=== PATIENT | male | born 1970 | race Caucasian/White ===

== ENCOUNTER 2016-10-16 08:43 | Day surgery (SDC) | payer OTHER ==
[~2016-10-16] VITALS: Ht 185.4 cm; Wt 106.0 kg
[~2016-10-16 08:43] MED LIST: 0.9% Sodium Chloride 1,000 ML IV SCH; OMEP20TA86 PO; Sodium Chloride LOK Flush 10 mL Syringe IV PRN; fentaNYL-PF 50 mCg/mL 2 mL Inj IVPUSH PRN
[2016-10-16 08:58] VITALS: BP 131/85; PULSE 66; RESP 16; O2SAT 96
[2016-10-16 10:12] VITALS: BP 129/77; PULSE 67; RESP 16; O2SAT 95
[2016-10-16 10:22] VITALS: BP 105/69; PULSE 77; RESP 16; O2SAT 93
--- NOTE | 2016-10-16 12:03 | ENDO ---
[address] [address] ENDOSCOPY PROCEDURE PATIENT: RAYSHAWN LEACH : 1970 MR#: [id number] ADMIT: 10/16/2016 JOB ID: [id number] DATE OF SERVICE: 10/16/2016 TYPE OF OPERATION: Esophagogastroduodenoscopy with biopsy and esophageal dilatation. PREOPERATIVE DIAGNOSIS(ES): Dysphagia. POSTOPERATIVE DIAGNOSIS(ES): Widely open, patent Schatzki ring in the distal esophagus, status post biopsy and esophageal dilatation performed from 18 to 20 mm in a serial fashion. ANESTHESIA: Fentanyl 125 mcg, Versed 6 mg IV administered. DESCRIPTION OF PROCEDURE: After risks and benefits explained to the patient, informed consent was obtained. After anesthesia administered, an upper endoscope was then inserted in the mouth, intubating into esophagus, stomach, second portion of duodenum. Mucosa carefully examined. After procedure was done, the scope withdrawn and procedure terminated. FINDINGS: Upon inspection of the esophagus, the esophagus was normal without masses, ulcers, or lesions, except that there was a widely open, patent Schatzki ring seen at 40 cm from incisors. Z-line located at 40 cm from incisors. Upon entering the stomach, the stomach was normal, without masses, ulcers, or lesions. Retroflexion normal. Duodenal bulb, first and second portions were normal. Biopsies taken at mid and distal esophagus. Afterwards, a CRE TTS balloon dilatation was performed in serial fashion from 18 to 20 mm in diameter with good mucosal tear. IMPRESSIONS: Widely open, patent Schatzki ring, status post biopsy and TTS CRE balloon dilatation from 18 to 20 mm in diameter with good mucosal tear. RECOMMENDATIONS: 1. Increase omeprazole to 40 mg by mouth twice a day. 2. GERD diet. 3. Await biopsy results.
--- NOTE | 2016-10-19 13:53 | PATH ---
SURGICAL PATHOLOGY Attending Physician:Jerald Whiting MD CASE STATUS: Signed Out PATIENT NAME: RAYSHAWN LEACH PID: [id number] : 1970 DATE COLLECTED:10/16/2016 18:25 SPECIMEN: 1: Esophagus, Biopsy 2: Esophagus, Biopsy CLINICAL HISTORY: 1).MID ESOPHAGUS BXS 2).DISTAL ESOPHAGUS BXS FINAL DIAGNOSIS: 1.MID ESOPHAGUS BIOPSY: FRAGMENTS OF SQUAMOUS EPITHELIUM, NEGATIVE FOR INTRAEPITHELIAL EOSINOPHILS. Negative for dysplasia and malignancy. 2.DISTAL ESOPHAGUS BIOPSIES: FRAGMENTS OF SQUAMOUS MUCOSA AND GASTRIC CARDIA-TYPE MUCOSA WITH REACTIVE EPITHELIAL CHANGES AND SCATTERED EOSINOPHILS PRESENT WITHIN THE SQUAMOUS EPITHELIUM CONSISTENT WITH CHANGES OF CHRONIC REFLUX. Negative for specialized metaplasia of Crane' s esophagus. Negative for dysplasia and malignancy. ICD10 code K21.0 GROSS DESCRIPTION: Received are two formalin-filled containers, both labeled with the patient' s name: 1. Received in formalin, labeled with the patient' s name and "mid esophagus biopsy", are two fragments of perez, soft tissue ranging in size from 0.1 x 0.1 x 0.1 cm to 0.2 x 0.1 x 0.1 cm. All fragments are totally submitted in cassette 1A. 2. Received in formalin, labeled with the patient' s name and "distal esophagus biopsy", is one fragment of perez, soft tissue measuring 0.2 x 0.1 x 0.1 cm. The fragment is totally submitted in cassette 2A ([id number]) MICRO DESCRIPTION: See diagnosis. ICD-9 CODES: CPT CODES: 1: 04681 2: 79999 Electronically Signed Out Bon Santoro MD [facility] Path[facility] [address], [place] [address] Technical component performed at [facility], [facility] [address], [place], [address]
== END 2016-10-16 23:59 | disposition home or self-care (01) ==
LOC: END 08:43
PROVIDERS: ATTEND Internal Medicine Gastroenterology
DX: K21.9 Gastro-esophageal reflux disease without esophagitis (principal); K22.2 Esophageal obstruction
CPT/HCPCS: 43239; 43249; G0500; J2250; J3010; J7030